=== PATIENT | female | born 1940 | race Caucasian/White ===

== ENCOUNTER 2018-09-08 12:56 | Emergency (ER) | payer MEDICARE, SELFPAY ==
[2018-09-08 13:08] VITALS: BP 191/81; PULSE 79; RESP 16; TEMP 36.6; O2SAT 98
--- NOTE | 2018-09-08 13:53 | DI.RAD_ITS ---
SYMPTOMS/DIAGNOSIS: FALL, CONCERN FOR FX LEFT SHOULDER: Two views. No priors. There is a comminuted fracture involving the proximal left humerus. The fracture extends from the lateral aspect of the greater tuberosity inferiorly and medially to involve the proximal humeral shaft. There is moderate displacement and comminution present. The glenohumeral joint and acromioclavicular joints are intact. No other fracture or dislocation is seen. No radiopaque foreign bodies are seen in the soft tissues. IMPRESSION: Displaced comminuted fracture involving the proximal left humerus. LEFT FOREARM: Multiple views. No acute fracture or dislocation is seen. The bones appear osteopenic. No radiopaque foreign bodies are seen in the soft tissues. IMPRESSION: No acute fracture or dislocation.
[2018-09-08] MEDS: Ibuprofen 800 MG TAB PO (14:02)
[2018-09-08] MEDS: Acetaminophen 500 MG TAB 1000 MG PO (14:03)
--- NOTE | 2018-09-08 14:54 | W.ED.GENAD ---
Discharge Plan Disposition Patient Disposition: HOME Discharge Details Chief Complaint: Orthopedic Clinical Impression: Fracture, humerus Primary Care Provider: Sesar Zuniga ED Provider: Raymond Soni Home Meds and New Rx's Prescriptions: New acetaminophen [Mapap Extra Strength] 500 MG tablet 1,000 mg PO Q6H 5 Days Qty: 60 RF: 0 ibuprofen [Motrin IB] 200 MG tablet 600 mg PO Q6H 5 Days Qty: 60 RF: 0 hydrocodone-acetaminophen [Pathfork] 7.5-325 mg tablet 1 tab PO ONCE PRN (Reason: pain) Qty: 5 RF: 0 No Action lisinopril 20 mg Tablet 20 mg PO DAILY RF: 0 amlodipine 5 mg Tablet 1 tab PO HS RF: 0 simvastatin 20 mg Tablet 20 mg PO QPM RF: 0 Discharge Instructions Instructions: Proximal Humerus Fracture (ED) Additional Instructions: You have a proximal fracture of your left humerus. Please use the cuff and collar splint as directed. Please take the Tylenol and Motrin (with food) for pain, and take the Pathfork only as needed for breakthrough pain. Please sleep at night angle of 45 degrees or higher. Please keep your splint on at all times. Please be very cautious when taking the narcotic as it can make you very lightheaded and dizzy. Please follow-up with your orthopedic surgeon /family doctor in [place] as soon as possible for reassessment. If you notice any worsening of your pain, any numbness, tingling, or weakness, please return immediately for reevaluation. Referrals: Sesar Zuniga MD [Primary Care Provider] - Discharge Data Discharge Date/Time-TO BE ENTERED AT DEPARTURE: 09/08/18 17:16 Medical Decision Making This is a 78-year-old female who presents for left arm pain after falling and hitting her shoulder hard run some hard reviewed. Physical exam demonstrates tenderness over the left shoulder at the proximal humerus, as well as the left forearm. And concern for potential fracture. We will get an x-ray to rule out any acute pathology. Report has returned and demonstrates evidence of an acute proximal humerus fracture that is moderately displaced, obliquely oriented fracture extending from the lateral aspect of the greater tuberosity through the neck and into the proximal shaft medially. This is mildly comminuted, with displacement along the greater tuberosity measuring up to 7 mm. No other fractures are noted. No fractures in the forearm. I contacted Dr. Cruz and reviewed the case, physical exam findings and specific x-ray findings, and discussedthe utilization of a coaptation splint versus a cuff and collar sling. He made it very clear to me that there was only a need for a cuff and collar sling in this scenario, he did not want any other splint, or any other sling. We did place the cuff and collar splint, and the patient tolerated this well. Although the patient lives here she is traveling down to [place] with her daughter where they want to follow-up with orthopedics. I discussed the potential need for home health options, and ways for which to access this on an outpatient basis with her primary care provider in [place]. Patient will be given Tylenol and Motrin for home use, as well as Pathfork for breakthrough pain. We discussed the importance of sleeping at a 45 degree angle or higher at all times, as well as red flags for which to return. Repeat examination demonstrated soft compartments, normal sensation, and a normal vascular exam. Patient will be discharged home with close follow-up with orthopedics in [place] with her daughter's assistance. I have extensively reviewed the treatment plan and discharge instructions with the patient and their family. I have addressed all patient concerns at this time. The patient and family was made aware of what symptoms to monitor for that would warrant a return to the emergency department. Discussed the plan with the patient and family, they demonstrate verbal understanding and agreement with our assessment and plan at this time. TECHNIQUE: XR Left forearm 2 views. COMPARISON: No relevant prior studies available. FINDINGS: Bones/joints: The bones appear osteopenic. No acute fracture is identified. The partially evaluated wrist and elbow joints appear normally aligned. There is a small posterior olecranon osteophyte. Soft tissues: The soft tissues appear grossly unremarkable. IMPRESSION: No acute fracture identified. Apparent osteopenia. Technique: XR Left shoulder complete 2 or more views. Comparison: No relevant prior studies available. Findings: Bones/joints: There is an acute, moderately displaced, obliquely oriented fracture extending from the lateral aspect of the greater tuberosity through the neck and into the proximal shaft medially. This is mildly comminuted. Displacement along the greater tuberosity measures up to 7 mm. No fracture is identified elsewhere. The glenohumeral and acromioclavicular joints are normally aligned, and demonstrate mild degenerative changes. The bones appear osteopenic. Soft tissues: The soft tissues appear grossly unremarkable. Impression: Acute proximal humeral fracture. Apparent osteopenia. HPI General Date/Time Provider Initiated Documentation: 09/08/18 13:53. HPI Narrative: This is a 78-year-old female with a past medical history of high cholesterol, high blood pressure with a history of osteoporosis who presents for evaluation of left arm pain. The patient was hiking when she lost her balance and landed on her left shoulder. She landed on some hard roots. She immediately had pain in her left shoulder and arm because of this. She did not hit her head, she had no loss of consciousness, she is not on any blood thinners. Aside for the pain in her left shoulder which is made worse with movement there are no relieving factors, she has no associated numbness or tingling. She does have some associated weakness secondary to the pain. She denies any other associated complaints. She denies any recent surgeries, or pertinent family history Related Data Home Medications Medication Instructions Recorded Confirmed acetaminophen [Mapap Extra 1,000 mg PO Q6H 5 Days #60 tab 09/08/18 Strength] amlodipine 1 tab PO HS 09/08/18 09/08/18 hydrocodone-acetaminophen [Pathfork] 1 tab PO ONCE PRN #5 tab 09/08/18 ibuprofen [Motrin Ib] 600 mg PO Q6H 5 Days #60 tab 09/08/18 lisinopril 20 mg PO DAILY 09/08/18 09/08/18 simvastatin 20 mg PO QPM 09/08/18 09/08/18 Previous Rx's Medication Instructions Recorded acetaminophen [Mapap Extra 1,000 mg PO Q6H 5 Days #60 tab 09/08/18 Strength] hydrocodone-acetaminophen [Pathfork] 1 tab PO ONCE PRN #5 tab 09/08/18 ibuprofen [Motrin Ib] 600 mg PO Q6H 5 Days #60 tab 09/08/18 Allergies Allergy/AdvReac Type Severity Reaction Status Date / Time No Known Allergies Allergy Unverified 09/08/18 13:13 General Stated Complaint: Orthopedic SOLANGE: 3 Review of Systems Review of Systems All systems reviewed & are unremarkable except as noted in HPI and below PFSH Social History Smoking/Tobacco Use Status: Never Exam Narrative Exam Narrative: 1.Const: Well-nourished, Well-developed, appearing stated age 2.Eyes: PERRL, no conjunctival injection, and symmetrical lids. 3.ENT: Atraumatic external nose and ears. Moist MM. Neck: Symmetric, trachea midline, No thyromegaly. There is no evidence of raccoon eyes, wall sign, CSF rhinorrhea, mastoid tenderness, cranial crepitus, hemotympanum, exophthalmos, or hyphema. Patient demonstrates intact dentition with no signs of tooth avulsion or fracture, no signs of jaw deformity, no evidence of a LeFort's fracture, with an intact palate, nose and orbital region. There is no evidence of a nasal septal hematoma. No proptosis. Jaw closes symmetrically. Airway is clear. 4.CVS: +S1/S2, No murmurs or gallops. Peripheral pulses 2+ and equal in all extremities. Brisk capillary refill in all extremities. 5.RESP: Airway clear, no obstructions. No abrasions or ecchymosis. Chest movement symmetric with respirations. No chest wall tenderness. Trachea midline. No crepitus. No step offs. No paradoxical movements. Lungs are clear to auscultation bilaterally. No rales, rhonchi, wheezing or stridor. Breath sound symmetric. No Sucking chest wounds. No clinical evidence of significant chest trauma. 6.GI: Soft, Nontender/Nondistended, No hepatosplenomegaly. No guarding or rebound. 7.MSK: Normocephalic, patient demonstrates notable tenderness over the proximal humerus, questionable small deformity. Tenderness over the proximal/lateral shoulder, as well as mild tenderness on palpation of the forearm on the left. All compartments are soft. Radial pulse +2 bilaterally, sensation intact including two-point discrimination. Normal flexion-extension of the wrist and movement of the fingers. 8.Skin: Warm, Dry. No rashes or lesions. 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 Sensation grossly intact, no focal neurologic deficits. 10.Psych: (AAO) x3. Appropriate mood and affect Course Vital Signs Temperature 36.6 C 09/08/18 13:08 Pulse 79 09/08/18 13:08 Respiratory Rate 16 09/08/18 13:08 Blood Pressure 191/81 H 09/08/18 13:08 Pulse Oximetry 98 09/08/18 13:08 Temperature 36.6 C 09/08/18 13:08 Temperature Source Skin 09/08/18 13:08 Pulse 79 09/08/18 13:08 Respiratory Rate 16 09/08/18 13:08 Respiratory Effort Non-Labored 09/08/18 13:11 Blood Pressure 191/81 H 09/08/18 13:08 Pulse Oximetry 98 09/08/18 13:08 Pain Level 7 09/08/18 14:03
--- NOTE | 2018-09-08 15:21 | DI.VRAD_ITS ---
EXAM: XR Left Shoulder Complete, 2 or More Views EXAM DATE/TIME: 09/08/2018 1:55 PM CLINICAL HISTORY: 78 years old, female; Pain; Upper arm and shoulder; Left; Patient HX: Fall, concern for FX TECHNIQUE: XR Left shoulder complete 2 or more views. COMPARISON: No relevant prior studies available. FINDINGS: Bones/joints: There is an acute, moderately displaced, obliquely oriented fracture extending from the lateral aspect of the greater tuberosity through the neck and into the proximal shaft medially. This is mildly comminuted. Displacement along the greater tuberosity measures up to 7 mm. No fracture is identified elsewhere. The glenohumeral and acromioclavicular joints are normally aligned, and demonstrate mild degenerative changes. The bones appear osteopenic. Soft tissues: The soft tissues appear grossly unremarkable. IMPRESSION: Acute proximal humeral fracture. Apparent osteopenia. Dictated and Authenticated by: Willie Zambrano MD. Ordering:ARLEN CAMARA MD
--- NOTE | 2018-09-08 15:22 | DI.VRAD_ITS ---
EXAM: XR Left Forearm, 2 Views EXAM DATE/TIME: 09/08/2018 2:48 PM CLINICAL HISTORY: 78 years old, female; Pain; Upper arm and elbow; Left; Patient HX: Fall, concern for FX TECHNIQUE: XR Left forearm 2 views. COMPARISON: No relevant prior studies available. FINDINGS: Bones/joints: The bones appear osteopenic. No acute fracture is identified. The partially evaluated wrist and elbow joints appear normally aligned. There is a small posterior olecranon osteophyte. Soft tissues: The soft tissues appear grossly unremarkable. IMPRESSION: No acute fracture identified. Apparent osteopenia. Dictated and Authenticated by: Willie Zambrano MD. Ordering:ARLEN CAMARA MD
[2018-09-08 16:57] VITALS: BP 167/100; PULSE 83; RESP 16; O2SAT 96
--- NOTE | 2018-09-09 08:16 | PDOC.ERCMPRO ---
Care Management Progress Note 09/09-Dr. Soni requested assistance with PCP (Dr. Zuniga) f/u as soon as possible for proximal humerus fracture. Patient also placed on ortho list. Referral faxed to [facility] this am. Patient's daughter also called in this morning. Discussed private home care companies that will come to the patients home. Information given to daughter about [facility] and [facility].
--- NOTE | 2018-09-14 15:34 | ED.FU.B_ITS ---
Riley, pharmacist from [facility] called to state patient's prescription for Fair Play could not be filled today as it was not on [facility] letterhead paper. A prescription was reprinted from Dr. Soni's dc instructions and patient's daughter took this down the road to [facility] but they would not fill it as it was a copy. Patient's daughter is requesting that we reorder a new prescription for Fair Play that is not a copy so she does not have to drive to [facility] which is an hour away as she right here at the hospital and near [facility]. Will reorder another Fair Play script as originally printed - 7.5/325mg Fair Play , 1 tab PO q6h prn pain, dispense #5.
== END 2018-09-08 17:16 | disposition home or self-care (01) ==
PROVIDERS: Emergency Provider Student in an Organized Health Care Education/Training Program; PCP Internal Medicine
DX: S42.252A Displaced fracture of greater tuberosity of left humerus, initial encounter for closed fracture (principal); W01.0XXA Fall on same level from slipping, tripping and stumbling without subsequent striking against object, initial encounter; Y93.31 Activity, mountain climbing, rock climbing and wall climbing; I10 Essential (primary) hypertension
CPT/HCPCS: 23620; 73030; 73090

== ENCOUNTER 2018-09-16 09:14 | Outpatient (CLI) | payer MEDICARE, SELFPAY ==
--- NOTE | 2018-09-16 08:35 | DI.RAD_ITS ---
SYMPTOM/DIAGNOSIS: FX LT HUMERUS LEFT SHOULDER: Two views. Comparison 09/08/18. There has been no change in alignment of the comminuted fracture involving the proximal left humerus compared to the prior examination. No new fractures or dislocations are seen. Mild degenerative changes are seen at the acromioclavicular joint. The soft tissues are unremarkable. IMPRESSION: Stable proximal left humeral fracture.
== END 2018-09-16 09:34 ==
PROVIDERS: PCP Internal Medicine; Referring Provider Internal Medicine; Visit Provider Student in an Organized Health Care Education/Training Program
DX: S42.202A Unspecified fracture of upper end of left humerus, initial encounter for closed fracture (principal); W01.0XXA Fall on same level from slipping, tripping and stumbling without subsequent striking against object, initial encounter
CPT/HCPCS: 99204; 99214; 73030

== ENCOUNTER 2018-09-30 08:40 | Outpatient (CLI) | payer MEDICARE, SELFPAY ==
--- NOTE | 2018-09-30 08:28 | DI.RAD_ITS ---
SYMPTOM/DIAGNOSIS: LT PROX HUMERUS FX LEFT SHOULDER: 09/30 Three views were obtained. The previously described proximal humeral fracture again noted with no gross interval change in alignment allowing for differences in projection and comparison with the previous examination of Sep 16.
== END 2018-09-30 09:00 ==
PROVIDERS: PCP Internal Medicine; Referring Provider Internal Medicine; Visit Provider Student in an Organized Health Care Education/Training Program
DX: S42.252D Displaced fracture of greater tuberosity of left humerus, subsequent encounter for fracture with routine healing (principal); W01.0XXD Fall on same level from slipping, tripping and stumbling without subsequent striking against object, subsequent encounter
CPT/HCPCS: 99213; 73030

== ENCOUNTER 2018-10-21 08:49 | Outpatient (CLI) | payer MEDICARE, SELFPAY ==
--- NOTE | 2018-10-21 08:40 | DI.RAD_ITS ---
SYMPTOM/DIAGNOSIS: F/U LT PROX HUMERUS FX LEFT SHOULDER: Comparison is made with 30 Sep 2018. There has been some healing with some callus formation around the previously noted comminuted proximal humeral fracture. The humeral head appears normally positioned. A nondisplaced glenoid fracture also shows some healing.
== END 2018-10-21 09:09 ==
PROVIDERS: PCP Internal Medicine; Referring Provider Internal Medicine; Visit Provider Student in an Organized Health Care Education/Training Program
DX: S42.252D Displaced fracture of greater tuberosity of left humerus, subsequent encounter for fracture with routine healing (principal); W01.0XXD Fall on same level from slipping, tripping and stumbling without subsequent striking against object, subsequent encounter
CPT/HCPCS: 99213; 73030